=== PATIENT | female | born 1955 | race Caucasian/White ===

== ENCOUNTER 2019-01-09 17:35 | Inpatient (IN) | payer BC ==
[2019-01-09] MEDS ORDERED: Ondansetron ODT 4 MG TAB PO PRN (19:05)
[2019-01-09] MEDS ORDERED: Acetaminophen 325 MG TAB PO PRN (19:05)
[2019-01-09] MEDS ORDERED: Dextrose 5% in Water 1,000 ML IV PRN (19:17)
[2019-01-09] MEDS ORDERED: Dextrose 50% Abboject 50 ML SYRINGE SLOW IVP PRN (19:17)
[2019-01-09] MEDS: CeleCOXIB 100 MG CAP PO SCH (20:16)
[2019-01-09] MEDS: traMADol HCl 50 MG TAB PO PRN (20:16)
[2019-01-09] MEDS: Acetaminophen 500 MG TAB PO SCH (20:18)
--- NOTE | 2019-01-10 02:41 | HP ---
CHIEF COMPLAINT: Leg fractures. HISTORY OF PRESENT ILLNESS: The patient is a 63-year-old female with a past medical history of diabetes, hypertension, arthritis, who suffered a mechanical fall on 01/01/2019 and subsequent right proximal femur fracture. The patient underwent ORIF of the right femur on 01/02/2019 and has been recovering from that surgery at [facility]. The patient has been transferred to [place] for further rehabilitation. The patient is toe-touch weightbearing on the right lower extremity. She states that her pain has been well controlled on the regimen that she was at in [place]. She states she is stable on chronic medical problems and chronic medications. PAST MEDICAL HISTORY: 1. Diabetes. 2. Hypertension. 3. Arthritis. PAST SURGICAL HISTORY: 1. Back surgery. 2. Sinus surgery. 3. Cervical disk surgery. 4. ORIF of the right femur. 5. Appendectomy. ALLERGIES: 1. PENICILLIN. 2. AZITHROMYCIN. 3. LEVOFLOXACIN. 4. TETRACYCLINE. 5. SULFA. FAMILY HISTORY: 1. Dad, colon cancer and GA. 2. Mom, CHF and COPD. SOCIAL HISTORY: The patient states that she was a smoker, but has not had a cigarette since her hospital admission last week and wants to quit. The patient states has no any alcohol use and denies other drug use. REVIEW OF SYSTEMS: GENERAL: Negative for fever, chills, or night sweats. EYES: Negative for vision changes or eye pain. HEENT: Negative for sore throat, rhinorrhea, nasal congestion. CARDIOVASCULAR: Negative for chest pain, palpitation, orthopnea, and PND. RESPIRATORY: Negative for cough, shortness of breath and wheezing. GI: Negative for nausea, vomiting, diarrhea and abdominal pain. : Negative for dysuria or polyuria. MUSCULOSKELETAL: Positive for right lower extremity pain that is controlled with tramadol and Celebrex. Also positive for mild swelling near the operation site. SKIN: Negative for rashes or lesions. PSYCHIATRIC: Negative for acute anxiety or depression. NEUROLOGIC: Negative for syncope or seizure. PHYSICAL EXAMINATION: VITAL SIGNS: Temp 98.3, pulse 77, respiration rate 16, O2 saturation 96% on room air, blood pressure 124/56. GENERAL: The patient was awake, alert, oriented, and in no acute distress. EYES: Pupils are equal, round, reactive to light and accommodation. Extraocular muscles intact. HEENT: Oropharynx and nasopharynx are without erythema or exudate. NECK: Supple without lymphadenopathy, thyromegaly or bruits. CARDIOVASCULAR: Regular rate and rhythm without murmurs, gallops, or rubs. LUNGS: Clear to auscultation bilaterally without wheezing or rhonchi. ABDOMEN: Soft, nontender, nondistended. Bowel sounds present. EXTREMITIES: There is no clubbing or cyanosis. MUSCULOSKELETAL: The patient has a hinged knee brace on the right lower extremity. Otherwise, she has full range of motion of all extremities at this point, but the right lower extremity is difficult to assess. NEUROLOGIC: Cranial nerves 2 through 12 are grossly intact. Deep tendon reflexes 2/4. Sensation is within normal limits. SKIN: Negative for rashes, lesions, or jaundice. PSYCHIATRIC: The patient displays appropriate mood and affect throughout the exam. ASSESSMENT AND PLAN: 1. Right proximal femur fracture status post open reduction internal fixation: We will continue tramadol and Celebrex for pain control. The patient is toe-touch weightbearing. OT and PT will be consulted. 2. Diabetes: Continue metformin. Check A1c in the morning. The patient will have Accu-Cheks twice daily. 3. Hypertension: Continue home medication. 4. Arthritis: Medications as listed above. Job ID: [id number] [facility]
[2019-01-10 05:17] LABS: #Basophils 0.2 thou/uL (0.0-0.2); #Eosinphils 0.4 thou/uL (0.0-0.7); #Lymphocytes 2.2 thou/uL (1.20-3.40); #Monocytes 1.3 thou/uL (0.11-0.59); #Neutrophils 8.3 thou/uL (1.40-6.50); %Basophils 1.4 % (0.0-1.0); %Eosinophils 3.2 % (0.0-10.0); %Lymphocytes 17.9 % (21.0-51.0); %Monocytes 10.8 % (0.0-10.0); %Neutrophils 66.7 % (42.0-75.0); Hemoglobin 11.1 g/dL (12.0-16.0); Mean Corpuscular HGB CONC 31.7 g/dL (32.0-36.0); Mean Corpuscular Hemoglobin 29.2 pg (27.0-31.0); Mean Corpuscular Volume 92.1 fL (78.0-98.0); Mean Platelet Volume 8.1 fL (7.4-10.4); Platelet Count 366 thou/uL (130-400); RBC Distribution Width 12.5 % (11.5-14.5); Red Blood Cell (RBC) Count 3.79 mill/uL (4.20-5.40); White Blood Cell (WBC) Count 12.4 thou/uL (4.8-10.8)
[2019-01-10 05:35] LABS: ALT (SGPT) 16 U/L (8-55); AST (SGOT) 13 U/L (5-34); Albumin 3.3 g/dL (3.4-4.8); Alkaline Phosphatase 76 U/L (40-150); Anion Gap 12 mmol/L (10-20); BUN (Urea Nitrogen) 21 mg/dL (9.8-20.1); Bilirubin, Total 0.5 mg/dL (0.2-1.2); Calc. Creatinine Clearance 169 mL/min (70-130); Calcium 9.7 mg/dL (7.8-10.44); Carbon Dioxide 29 mmol/L (23-31); Chloride 103 mmol/L (98-107); Estimated GFR-MDRD Greater than 90; Globulin 2.9 g/dL (2.4-3.5); Glucose 129 mg/dL (80-115); Potassium 4.4 mmol/L (3.5-5.1); Protein, Total 6.2 g/dL (6.0-8.3); Sodium 140 mmol/L (136-145)
[2019-01-10] MEDS: Acetaminophen 500 MG TAB PO SCH ×3 (05:54→18:03)
[2019-01-10] MEDS: Losartan 25 MG TAB PO SCH (09:03)
[2019-01-10] MEDS: Bupropion 150 MG XL TAB PO SCH (09:03)
[2019-01-10] MEDS: metFORMIN 500 MG TAB PO SCH ×2 (09:03→18:03)
[2019-01-10] MEDS: Polyethylene Glycol 3350 17 GM Packet PO SCH (09:03)
[2019-01-10] MEDS: Enoxaparin Sodium 40 MG/0.4 ML SYRINGE SC SCH (09:03)
[2019-01-10] MEDS: CeleCOXIB 100 MG CAP PO SCH ×2 (09:03→20:30)
[2019-01-10] MEDS: Hydrochlorothiazide 25 MG TAB PO SCH (09:03)
--- NOTE | 2019-01-10 10:59 | PRG ---
DATE OF SERVICE: 01/10/2019 SUBJECTIVE: The patient is a 63-year-old female, undergoing rehabilitation following a right distal femur fracture. Overnight the patient slept well and she has no complaints this morning. OBJECTIVE: VITAL SIGNS: Temperature 97.7, pulse 75, respiratory rate 18, O2 saturation 93% on room air, and blood pressure 140/63. GENERAL: The patient is awake, alert, and oriented, in no acute distress. CARDIOVASCULAR: Regular rate and rhythm without murmurs, gallops, or rubs. LUNGS: Clear to auscultation bilaterally without wheezing or rhonchi. EXTREMITIES: The patient's right lower extremity is in a hinged knee brace with the leg Alexandre wrap. PSYCHIATRIC: The patient displays appropriate mood and affect. DIAGNOSTIC STUDIES: LABORATORY RESULTS: 1. CBC: WBCs 12.4, hemoglobin 11.1, hematocrit 34.9, and platelets 366. 2. CMP: Sodium 140, potassium 4.4, chloride 103, bicarb 29, BUN 21, creatinine 0.63, glucose 129, calcium 9.7, total bilirubin 0.5, AST 13, ALT 16, alkaline phosphatase 76, and total protein 6.2. 3. Accu-Cheks 109 from 149, 156. ASSESSMENT AND PLAN: 1. Right distal femur fracture status post open reduction and internal fixation: The patient will begin to work with OT and PT today. 2. Hypertension: Continue home medications. Blood pressure stable. 3. Diabetes: Blood sugars well controlled. A1c is still pending this morning. 4. Arthritis: Continue Celebrex, Tylenol, and tramadol. 5. Deep vein thrombosis prophylaxis with Lovenox. Job ID: [id number]
[2019-01-10 11:14] LABS: Hemoglobin A1c 5.7 % (4.0-6.0)
[2019-01-10] MEDS: traMADol HCl 50 MG TAB PO PRN (20:30)
[2019-01-11] MEDS: Acetaminophen 500 MG TAB PO SCH ×4 (04:22→17:35)
[2019-01-11] MEDS: Losartan 25 MG TAB PO SCH (08:18)
[2019-01-11] MEDS: metFORMIN 500 MG TAB PO SCH ×2 (08:19→17:35)
[2019-01-11] MEDS: CeleCOXIB 100 MG CAP PO SCH ×2 (08:19→21:46)
[2019-01-11] MEDS: Hydrochlorothiazide 25 MG TAB PO SCH (08:19)
[2019-01-11] MEDS: Bupropion 150 MG XL TAB PO SCH (08:19)
[2019-01-11] MEDS: Enoxaparin Sodium 40 MG/0.4 ML SYRINGE SC SCH (08:19)
[2019-01-11] MEDS: Polyethylene Glycol 3350 17 GM Packet PO SCH (08:20)
--- NOTE | 2019-01-11 10:45 | PRG ---
DATE OF SERVICE: 01/11/2019 SUBJECTIVE: The patient is a 63-year-old female, undergoing rehabilitation following a distal femur fracture and subsequent ORIF. The patient's only complaint this morning is that the Lovenox injections that she received are stinging. She states that she practices transferring from wheelchair to a walker to bed yesterday with therapy. The patient states that her leg pain was controlled with current medications. OBJECTIVE: VITAL SIGNS: Temperature 97.8, pulse 86, respiration rate 16, O2 saturations 96% on room air, blood pressure 98/49. GENERAL: The patient is awake, alert, oriented, in no acute distress. CARDIOVASCULAR: Regular rate and rhythm without murmurs, gallops, or rubs. LUNGS: Clear to auscultation bilaterally without wheezing or rhonchi. ABDOMEN: Soft, nontender, nondistended with bowel sounds present. EXTREMITIES: No clubbing, cyanosis, or edema. PSYCHIATRIC: The patient displays an appropriate mood and affect. MUSCULOSKELETAL: The patient has a hinged knee brace on the right lower extremity. LABORATORY DATA: 1. Hemoglobin A1c 5.7. 2. Accu-Cheks 120, 116, 127. ASSESSMENT AND PLAN: 1. Right distal femur fracture, status post open reduction and internal fixation: The patient will continue PT and OT. Continue medications for pain control. Nursing is called for followup appointment and we are waiting on a call back from the specialist. 2. Hypertension: Blood pressure stable. Continue home medications. 3. Diabetes: A1c is controlled. Blood sugars are stable. Continue metformin. 4. Arthritis: Continue current pain medications, which are tramadol, Tylenol, and Celebrex. 5. Deep venous thrombosis prophylaxis with Lovenox. Job ID: [id number]
[2019-01-12] MEDS: Acetaminophen 500 MG TAB PO SCH ×5 (04:57→23:29)
[2019-01-12] MEDS: Bupropion 150 MG XL TAB PO SCH (08:08)
[2019-01-12] MEDS: Hydrochlorothiazide 25 MG TAB PO SCH (08:08)
[2019-01-12] MEDS: metFORMIN 500 MG TAB PO SCH ×2 (08:08→17:20)
[2019-01-12] MEDS: Losartan 25 MG TAB PO SCH (08:08)
[2019-01-12] MEDS: Polyethylene Glycol 3350 17 GM Packet PO SCH (08:09)
[2019-01-12] MEDS: Enoxaparin Sodium 40 MG/0.4 ML SYRINGE SC SCH (08:09)
[2019-01-12] MEDS: CeleCOXIB 100 MG CAP PO SCH ×2 (08:09→21:21)
[2019-01-12] MEDS: traMADol HCl 50 MG TAB PO PRN (21:21)
[2019-01-13] MEDS: Acetaminophen 500 MG TAB PO SCH ×3 (05:12→17:27)
[2019-01-13] MEDS: Losartan 25 MG TAB PO SCH (07:35)
[2019-01-13] MEDS: metFORMIN 500 MG TAB PO SCH ×2 (07:35→17:27)
[2019-01-13] MEDS: Hydrochlorothiazide 25 MG TAB PO SCH (07:35)
[2019-01-13] MEDS: CeleCOXIB 100 MG CAP PO SCH ×2 (09:02→20:42)
[2019-01-13] MEDS: Enoxaparin Sodium 40 MG/0.4 ML SYRINGE SC SCH (09:02)
[2019-01-13] MEDS: Bupropion 150 MG XL TAB PO SCH (09:02)
[2019-01-13] MEDS: Polyethylene Glycol 3350 17 GM Packet PO SCH (09:03)
--- NOTE | 2019-01-13 10:07 | PRG ---
DATE OF SERVICE: 01/13/2019 SUBJECTIVE: The patient is a 63-year-old female, undergoing rehabilitation following a right distal femur fracture. The patient states that she occasionally gets twinges of pain in that leg, but it is tolerable. The patient was seen this morning working with Physical Therapy outside the facility practicing moving her wheelchair up the wheelchair ramp. OBJECTIVE: VITAL SIGNS: Temp 96.7, pulse 78, respiration rate 18, O2 saturation 95% on room air, and blood pressure 133/64. GENERAL: The patient is awake, alert, oriented, in no acute distress. CARDIOVASCULAR: Regular rate and rhythm without murmurs, gallops, or rubs. LUNGS: Clear to auscultation bilaterally without wheezing or rhonchi. ABDOMEN: Soft, nontender, and nondistended. EXTREMITIES: There is no clubbing, cyanosis, or edema. MUSCULOSKELETAL: The patient has a hinged knee brace on the right lower extremity. PSYCHIATRIC: The patient displays appropriate mood and affect. LABORATORY DATA: Accu-Cheks 128, 121. ASSESSMENT AND PLAN: 1. Right distal femur fracture, status post open reduction and internal fixation: The patient will continue current medications for pain management. She will continue PT and OT. 2. Diabetes: Blood sugars are well controlled. 3. Hypertension: Blood pressure is controlled. Continue home medications. 4. Arthritis: Continue Celebrex, tramadol, and Tylenol. 5. Deep vein thrombosis prophylaxis with Lovenox. Job ID: [id number]
[2019-01-14] MEDS: Acetaminophen 500 MG TAB PO SCH ×4 (05:59→17:12)
[2019-01-14] MEDS: Enoxaparin Sodium 40 MG/0.4 ML SYRINGE SC SCH (08:14)
[2019-01-14] MEDS: metFORMIN 500 MG TAB PO SCH ×2 (08:15→17:13)
[2019-01-14] MEDS: Hydrochlorothiazide 25 MG TAB PO SCH (08:15)
[2019-01-14] MEDS: CeleCOXIB 100 MG CAP PO SCH ×2 (08:15→20:51)
[2019-01-14] MEDS: Polyethylene Glycol 3350 17 GM Packet PO SCH (08:15)
[2019-01-14] MEDS: Bupropion 150 MG XL TAB PO SCH (08:15)
[2019-01-14] MEDS: Losartan 25 MG TAB PO SCH (08:15)
--- NOTE | 2019-01-14 12:26 | PRG ---
DATE OF SERVICE: 01/14/2019 SUBJECTIVE: The patient is a 63-year-old female, undergoing rehabilitation following a right distal femur fracture status post ORIF. The patient's bandage has been removed from her leg. She states her pain is controlled. Nursing reports that she is having difficulty remembering to stages of toe-touch weightbearing with transfers. OBJECTIVE: VITAL SIGNS: Temperature 96.0, pulse 85, respiratory rate 18, O2 saturation 93% on room air, and blood pressure 128/57. GENERAL: The patient is awake, alert, and oriented, in no acute distress. CARDIOVASCULAR: Regular rate and rhythm without murmurs, gallops, or rubs. LUNGS: Clear to auscultation bilaterally without wheezing or rhonchi. ABDOMEN: Soft, nontender, and nondistended. Bowel sounds present. EXTREMITIES: There is no clubbing or cyanosis, and there is mild stable edema around the right knee. SKIN: The patient's incision is clean, dry, and intact and js are in place with no signs of erythema. PSYCHIATRIC: The patient displays an appropriate mood and affect. LABORATORY DATA: Accu-Cheks: 143, 122. ASSESSMENT AND PLAN: 1. Right distal femur fracture status post open reduction and internal fixation: The patient will continue PT and OT. She is working on transfers and they are continuing to encourage her on a toe-touch weightbearing status. She has a followup appointment with Dr. Davidson in two days. 2. Diabetes: The patient's blood sugars were well controlled. Continue diabetic diet. 3. Hypertension: Blood pressures are well controlled. 4. Osteoarthritis: Continue current medications for pain control. 5. Deep venous thrombosis prophylaxis. Continue Lovenox. Job ID: [id number]
[2019-01-15] MEDS: Acetaminophen 500 MG TAB PO SCH ×4 (03:01→17:21)
[2019-01-15] MEDS: Hydrochlorothiazide 25 MG TAB PO SCH (07:43)
[2019-01-15] MEDS: metFORMIN 500 MG TAB PO SCH ×2 (07:43→17:21)
[2019-01-15] MEDS: Losartan 25 MG TAB PO SCH (07:43)
[2019-01-15] MEDS: Bupropion 150 MG XL TAB PO SCH (08:24)
[2019-01-15] MEDS: Enoxaparin Sodium 40 MG/0.4 ML SYRINGE SC SCH (08:24)
[2019-01-15] MEDS: CeleCOXIB 100 MG CAP PO SCH ×2 (08:24→20:34)
[2019-01-15] MEDS: Polyethylene Glycol 3350 17 GM Packet PO SCH (08:25)
--- NOTE | 2019-01-15 17:49 | PRG ---
DATE OF SERVICE: 01/15/2019 SUBJECTIVE: The patient is a 63-year-old female, undergoing rehabilitation following a right distal femur fracture status post ORIF. The patient will have her follow up with Ortho tomorrow. She is toe-touch weightbearing and states that she was able to take five steps with therapy using her good leg today. She notes some mild swelling in the right knee, however, that is improved after some ice packs. OBJECTIVE: VITAL SIGNS: Temperature 98.1, pulse 84, respiration rate 16, O2 saturation 94% on room air, and blood pressure 135/60. GENERAL: The patient is awake, alert, and oriented, in no acute distress. CARDIOVASCULAR: Regular rate and rhythm without murmurs, gallops, or rubs. LUNGS: Clear to auscultation bilaterally without wheezing or rhonchi. ABDOMEN: Soft, nontender, nondistended with bowel sounds present. EXTREMITIES: There is no clubbing, cyanosis, or edema. SKIN: The patient's incision is clean, dry, and intact with js in place on the right lower extremity. PSYCHIATRIC: The patient displays appropriate mood and affect. LABORATORY DATA: Accu-Cheks 114, 197, 132. ASSESSMENT AND PLAN: 1. Right distal femur fracture, status post open reduction and internal fixation: The patient will see Ortho tomorrow. Continue PT and OT with toe-touch weightbearing until additional orders were given by Ortho. 2. Diabetes: Blood sugar was a little bit elevated this morning, but the rest are within normal range for diabetic. Continue to encourage compliance with diet. 3. Hypertension: Blood pressure has been stable. 4. Osteoarthritis: Continue pain medication as needed. 5. Deep venous thrombosis prophylaxis with Lovenox. Job ID: [id number]
[2019-01-16] MEDS: Acetaminophen 500 MG TAB PO SCH ×5 (05:16→23:45)
[2019-01-16 05:41] LABS: #Basophils 0.2 thou/uL (0.0-0.2); #Eosinphils 0.3 thou/uL (0.0-0.7); #Lymphocytes 2.6 thou/uL (1.20-3.40); #Monocytes 1.2 thou/uL (0.11-0.59); #Neutrophils 9.2 thou/uL (1.40-6.50); %Basophils 1.3 % (0.0-1.0); %Eosinophils 2.4 % (0.0-10.0); %Lymphocytes 19.2 % (21.0-51.0); %Monocytes 8.9 % (0.0-10.0); %Neutrophils 68.2 % (42.0-75.0); Hemoglobin 11.5 g/dL (12.0-16.0); Mean Corpuscular HGB CONC 31.7 g/dL (32.0-36.0); Mean Corpuscular Volume 91.5 fL (78.0-98.0); Mean Platelet Volume 7.4 fL (7.4-10.4); Platelet Count 423 thou/uL (130-400); RBC Distribution Width 12.7 % (11.5-14.5); Red Blood Cell (RBC) Count 3.97 mill/uL (4.20-5.40); White Blood Cell (WBC) Count 13.4 thou/uL (4.8-10.8)
[2019-01-16 05:52] LABS: Anion Gap 13 mmol/L (10-20); BUN (Urea Nitrogen) 26 mg/dL (9.8-20.1); Calc. Creatinine Clearance 154 mL/min (70-130); Carbon Dioxide 30 mmol/L (23-31); Chloride 101 mmol/L (98-107); Estimated GFR-MDRD 86; Glucose 116 mg/dL (80-115); Potassium 3.8 mmol/L (3.5-5.1); Sodium 140 mmol/L (136-145)
[2019-01-16] MEDS: Hydrochlorothiazide 25 MG TAB PO SCH (07:26)
[2019-01-16] MEDS: Losartan 25 MG TAB PO SCH (07:26)
[2019-01-16] MEDS: metFORMIN 500 MG TAB PO SCH ×2 (07:26→17:30)
[2019-01-16] MEDS: Bupropion 150 MG XL TAB PO SCH (08:19)
[2019-01-16] MEDS: Enoxaparin Sodium 40 MG/0.4 ML SYRINGE SC SCH (08:19)
[2019-01-16] MEDS: Polyethylene Glycol 3350 17 GM Packet PO SCH (08:19)
[2019-01-16] MEDS: CeleCOXIB 100 MG CAP PO SCH ×2 (08:19→21:03)
--- NOTE | 2019-01-16 23:07 | PRG ---
DATE OF SERVICE: 01/16/2019 SUBJECTIVE: The patient is a 63-year-old female, undergoing rehabilitation following a right distal femur fracture status post ORIF. The patient has been to see her orthopedic surgeon today, and her js have been removed. The patient is to remain toe-touch weightbearing for the next 4 weeks. I have recommended that she start calcium and vitamin D. OBJECTIVE: VITAL SIGNS: Temp 97.6, pulse 81, respiration rate 20, O2 saturation 95% on room air, and blood pressure 116/56. GENERAL: The patient is awake, alert, oriented, and in no acute distress. CARDIOVASCULAR: Regular rate and rhythm without murmurs, gallops, or rubs. LUNGS: Clear to auscultation bilaterally without wheezing or rhonchi. ABDOMEN: Soft, nontender, nondistended. Bowel sounds present. EXTREMITIES: There is no clubbing, cyanosis, or edema. SKIN: The patient has Steri-Strips in place following the incision on her right lower extremity. There are no signs of erythema. PSYCHIATRIC: The patient displays appropriate mood and affect. LABORATORY DATA: 1. CBC: WBCs 13.4, hemoglobin 11.5, hematocrit 36.3, platelet count 423. 2. BMP: Sodium 140, potassium 3.8, chloride 101, bicarb 30, BUN 26, creatinine 0.69, glucose 116, calcium 10. 3. Accu-Chek 104. ASSESSMENT AND PLAN: 1. Right distal femur fracture status post ORIF: We will continue PT and OT. The patient will remain toe-touch weightbearing for the next 4 weeks and then will have a followup with Ortho again. We will continue pain management. 2. Hypertension: Blood pressure is well controlled. 3. Diabetes: Blood sugar is also controlled. 4. Leukocytosis: The patient has no signs of infection at this time. She is afebrile. Her incision looks clean. We will monitor for additional signs of infection. 5. Osteoarthritis: Pain control as mentioned above. 6. Osteopenia: The patient will be started on calcium and vitamin D. 7. DVT prophylaxis with Lovenox. Job ID: [id number]
[2019-01-17] MEDS: Acetaminophen 500 MG TAB PO SCH ×4 (05:29→23:57)
[2019-01-17] MEDS: Bupropion 150 MG XL TAB PO SCH (07:46)
[2019-01-17] MEDS: metFORMIN 500 MG TAB PO SCH ×2 (07:46→19:21)
[2019-01-17] MEDS: Calcium Carbonate + Vit D 1 TAB PO SCH (07:46)
[2019-01-17] MEDS: Losartan 25 MG TAB PO SCH (07:46)
[2019-01-17] MEDS: CeleCOXIB 100 MG CAP PO SCH ×2 (07:46→20:32)
[2019-01-17] MEDS: Enoxaparin Sodium 40 MG/0.4 ML SYRINGE SC SCH (07:46)
[2019-01-17] MEDS: Hydrochlorothiazide 25 MG TAB PO SCH (07:46)
[2019-01-17] MEDS: Polyethylene Glycol 3350 17 GM Packet PO SCH (07:51)
--- NOTE | 2019-01-17 13:00 | PRG ---
DATE OF SERVICE: 01/17/2019 SUBJECTIVE: The patient is at [facility] for rehabilitation following a right distal femur fracture. The patient had a good night last night and states that her pain is well controlled this morning. She is looking forward to beginning therapy. OBJECTIVE: VITAL SIGNS: Temperature 98.1, pulse 72, respiration rate 20, O2 saturation 94% on room air, blood pressure 122/76. GENERAL: The patient is awake, alert, oriented, in no acute distress. CARDIOVASCULAR: Regular rate and rhythm without murmurs, gallops, or rubs. LUNGS: Clear to auscultation bilaterally without wheezing or rhonchi. ABDOMEN: Soft, nontender, nondistended. Bowel sounds are present. EXTREMITIES: There is no clubbing, cyanosis, or edema. SKIN: Steri-Strips are in place on the patient's right lower extremity incision. There is no erythema, warmth, or tenderness. ASSESSMENT AND PLAN: 1. Right distal femur fracture, status post open reduction and internal fixation: Continue therapy and pain control. 2. Osteopenia: We are starting calcium and vitamin D. She will get her first dose today. 3. Hypertension, well controlled. 4. Diabetes, well controlled. 5. DVT prophylaxis: Lovenox. Job ID: [id number]
[2019-01-18] MEDS: Acetaminophen 500 MG TAB PO SCH ×3 (05:07→17:29)
[2019-01-18] MEDS: metFORMIN 500 MG TAB PO SCH ×2 (07:57→17:29)
[2019-01-18] MEDS: Calcium Carbonate + Vit D 1 TAB PO SCH (07:57)
[2019-01-18] MEDS: CeleCOXIB 100 MG CAP PO SCH ×2 (07:57→20:04)
[2019-01-18] MEDS: Losartan 25 MG TAB PO SCH (07:57)
[2019-01-18] MEDS: Enoxaparin Sodium 40 MG/0.4 ML SYRINGE SC SCH (07:58)
[2019-01-18] MEDS: Hydrochlorothiazide 25 MG TAB PO SCH (07:58)
[2019-01-18] MEDS: Bupropion 150 MG XL TAB PO SCH (07:58)
[2019-01-18] MEDS: Polyethylene Glycol 3350 17 GM Packet PO SCH (07:58)
[2019-01-19] MEDS: Acetaminophen 500 MG TAB PO SCH ×5 (05:20→23:22)
[2019-01-19] MEDS: Enoxaparin Sodium 40 MG/0.4 ML SYRINGE SC SCH (08:11)
[2019-01-19] MEDS: CeleCOXIB 100 MG CAP PO SCH ×2 (08:12→20:23)
[2019-01-19] MEDS: Calcium Carbonate + Vit D 1 TAB PO SCH (08:12)
[2019-01-19] MEDS: Losartan 25 MG TAB PO SCH (08:12)
[2019-01-19] MEDS: Bupropion 150 MG XL TAB PO SCH (08:12)
[2019-01-19] MEDS: metFORMIN 500 MG TAB PO SCH ×2 (08:12→17:21)
[2019-01-19] MEDS: Hydrochlorothiazide 25 MG TAB PO SCH (08:12)
[2019-01-19] MEDS: Polyethylene Glycol 3350 17 GM Packet PO SCH (08:20)
[2019-01-20] MEDS: Acetaminophen 500 MG TAB PO SCH ×3 (05:29→17:47)
[2019-01-20] MEDS: Losartan 25 MG TAB PO SCH (07:38)
[2019-01-20] MEDS: Hydrochlorothiazide 25 MG TAB PO SCH (07:38)
[2019-01-20] MEDS: Calcium Carbonate + Vit D 1 TAB PO SCH (07:38)
[2019-01-20] MEDS: metFORMIN 500 MG TAB PO SCH ×2 (07:38→17:47)
[2019-01-20] MEDS: Bupropion 150 MG XL TAB PO SCH (08:48)
[2019-01-20] MEDS: CeleCOXIB 100 MG CAP PO SCH ×2 (08:48→20:37)
[2019-01-20] MEDS: Enoxaparin Sodium 40 MG/0.4 ML SYRINGE SC SCH (08:49)
[2019-01-20] MEDS: Polyethylene Glycol 3350 17 GM Packet PO SCH (08:49)
--- NOTE | 2019-01-20 09:25 | PRG ---
DATE OF SERVICE: 01/20/2019 TIME: 0800 hours. SUBJECTIVE: Ms. Mitchell is lying comfortably in hospital bed. She is receiving breakfast at the time of exam. The patient reports she is doing well. No events overnight. States pain is controlled. Able to bear minimal weight on right lower extremity. Continues to work with Physical Therapy. No complications. Reports pain after physical therapy, 1 to 2/10. Denies any trouble with voiding or bowel movements. Does state she is ready to go home, but understands continued need for assistance. Sutures were removed on . The patient reports no drainage discharge or redness from incision site, and also denies pain. OBJECTIVE: VITAL SIGNS: Temperature 96.0, pulse 69 and regular, respiratory rate 16, O2 saturation 95% on room air, blood pressure 121/63, max temperature 96.8. Intake total 1440 mL. Weight 113.942 kilograms. GENERAL: The patient is awake, alert, and oriented to person, place, time, and event, in no acute distress, lying comfortably in hospital bed. HEENT: Atraumatic and normocephalic. Extraocular muscles are intact. Conjunctivae are clear. Moist mucous membranes. No oral lesions. Grossly normal hearing. CARDIOVASCULAR: Regular rate and rhythm. No murmurs, gallops, or rubs. LUNGS: Clear to auscultation bilaterally. No wheezes, rhonchi, or crackles. ABDOMEN: Soft, nontender, nondistended. No guarding. No rebound. Bowel sounds present. EXTREMITIES: No clubbing, cyanosis, or edema. Brace appropriately attached to right lower extremity. Incision healing well. No erythema or drainage. No tenderness. No heat. SKIN: Steri-Strips in place on the patient's right lower extremity. PSYCH: Affect appropriate. Insight good. LABS: POC Glucose: 97, 130, 98 ASSESSMENT AND PLAN: 1. Right distal femur fracture status post open reduction and internal fixation. on 01/02/2019 after fall occurring on 01/01/2019. The patient is currently in inpatient rehab, continues to do well with physical therapy. Pain is controlled. Will follow up in 2 week with Orthopedics. Incision is healing well, no concerns. 2. Osteopenia with fragility fracture. Continue calcium-vitamin D. We will likely need bisphosphonates after acute healing stage due to concerning fracture. 3. Hypertension, well controlled. Continue current medications. 4. Diabetes. Accu-Chek's have been 97, 130, 98. We will continue current medications. No need to adjust at this time. Continue carb-controlled diet. 5. Deep vein thrombosis prophylaxis. Continue Lovenox ppx. Will consider switching to oral. Job ID: [id number] [facility]
[2019-01-21] MEDS: Acetaminophen 500 MG TAB PO SCH ×5 (00:34→23:29)
[2019-01-21] MEDS: Losartan 25 MG TAB PO SCH (08:14)
[2019-01-21] MEDS: Hydrochlorothiazide 25 MG TAB PO SCH (08:14)
[2019-01-21] MEDS: Enoxaparin Sodium 40 MG/0.4 ML SYRINGE SC SCH (08:15)
[2019-01-21] MEDS: Bupropion 150 MG XL TAB PO SCH (08:15)
[2019-01-21] MEDS: metFORMIN 500 MG TAB PO SCH ×2 (08:15→17:09)
[2019-01-21] MEDS: Calcium Carbonate + Vit D 1 TAB PO SCH (08:15)
[2019-01-21] MEDS: CeleCOXIB 100 MG CAP PO SCH ×2 (08:15→20:42)
[2019-01-21] MEDS: Polyethylene Glycol 3350 17 GM Packet PO SCH (08:16)
--- NOTE | 2019-01-21 09:50 | PRG ---
DATE OF SERVICE: 01/21/2019 TIME: 07:41. SUBJECTIVE: Mrs. Mitchell is lying comfortably in her hospital bed. She denies any acute events overnight. Reports pain is well controlled. No complications with bladder or bowel function. She did well with physical therapy yesterday. Reportedly was able to hop 36 feet. Reports incision is healing well. No complications. OBJECTIVE: VITAL SIGNS: Temperature 97.8, pulse 74 and regular, respiratory rate 16, O2 saturation 95% on room air, blood pressure 137/61. Intake 360 mL. GENERAL: The patient is awake, alert, and oriented to person, place, time, and event, in no acute distress noted. She is lying comfortably in her hospital bed. HEENT: Atraumatic and normocephalic. Extraocular muscles are intact. Conjunctivae are clear. Moist mucous membranes. No oral lesions. Grossly normal hearing. CARDIOVASCULAR: Regular rate and rhythm. No murmurs. LUNGS: Clear to auscultation bilaterally. No wheezes, crackles, or rhonchi. ABDOMEN: Soft, nontender, nondistended. Bowel sounds present. EXTREMITIES: No clubbing, cyanosis, or edema. Leg brace attached to right lower extremity. SKIN: Steri-Strips again in place. Incision healing well. No erythema, drainage, edema, or heat. PSYCH: Appropriate mood and affect. LABS: Accu-chek 89, 172, 93. ASSESSMENT AND PLAN: 1. Right distal femur fracture, status post open reduction and internal fixation of right intra-articular distal femur fracture on 01/02/2019. The patient is currently in inpatient rehab, continues to do well. We will continue physical therapy. Still not able to weight bear. We will follow up with Orthopedics in 2 weeks. Weightbearing based on Orthopedics recommendations. Incision is healing well, no concerns or infection. 2. Osteopenia with fragility fracture. We will continue vitamin D and calcium. The patient will likely need bisphosphonates after acute healing stage. 3. Hypertension, well controlled. Continue current medications. These include HCTZ and losartan. 4. Diabetes. Controlled. We will discontinue Accu-Chek's. Continue metformin. No side effects at this time. Continue carb-controlled diet. 5. Long-term tobacco use, status post cessation. The patient currently on Wellbutrin. No longer having cravings for tobacco or nicotine products. No use over the last 3 weeks. We will continue current medications. 6. Prophylaxis. The patient is currently on Lovenox for DVT prophylaxis with p.r.n. H2 reed for GERD or reflux. Job ID: [id number] [facility]
--- NOTE | 2019-01-21 16:22 | PRG ---
DATE OF SERVICE: 01/19/2019 SUBJECTIVE: The patient is a 63-year-old female undergoing rehabilitation following a right distal femur fracture. The patient states that her pain is well controlled. She has noted that the swelling in her right lower extremity is also improved. OBJECTIVE: VITAL SIGNS: Temperature 96.8, pulse 77, respiration rate 18, O2 saturation 96% on room air, and blood pressure 123/67. GENERAL: The patient is awake, alert, and oriented, in no acute distress. CARDIOVASCULAR: Regular rate and rhythm without murmurs, gallops, or rubs. LUNGS: Clear to auscultation bilaterally without wheezing or rhonchi. ABDOMEN: Soft, nontender, and nondistended. Bowel sounds present. EXTREMITIES: No clubbing or cyanosis. SKIN: Steri-Strips are in place on the right lower extremity along the incision line. PSYCHIATRIC: The patient displays an appropriate mood and affect. ASSESSMENT AND PLAN: 1. Right distal femur fracture: The patient is doing well. She will continue toe-touch weightbearing. Continue PT and OT that we will resume on Sunday. 2. Hypertension: Blood pressure is well controlled. 3. Diabetes: The patient is controlled with oral medications and she has had no episodes of hypoglycemia. 4. Osteopenia: Continue calcium and vitamin D. 5. Dr. Marisol Robert will be covering for me starting this afternoon, 01/19 through 01/26. Job ID: [id number]
[2019-01-22] MEDS: Acetaminophen 500 MG TAB PO SCH ×3 (05:29→17:42)
[2019-01-22] MEDS: Calcium Carbonate + Vit D 1 TAB PO SCH (08:32)
[2019-01-22] MEDS: Enoxaparin Sodium 40 MG/0.4 ML SYRINGE SC SCH (08:32)
[2019-01-22] MEDS: CeleCOXIB 100 MG CAP PO SCH ×2 (08:32→20:45)
[2019-01-22] MEDS: Bupropion 150 MG XL TAB PO SCH (08:32)
[2019-01-22] MEDS: Hydrochlorothiazide 25 MG TAB PO SCH (08:32)
[2019-01-22] MEDS: metFORMIN 500 MG TAB PO SCH ×2 (08:32→17:42)
[2019-01-22] MEDS: Losartan 25 MG TAB PO SCH (08:32)
[2019-01-22] MEDS: Polyethylene Glycol 3350 17 GM Packet PO SCH (09:02)
--- NOTE | 2019-01-22 16:05 | PRG ---
DATE OF SERVICE: 01/22/2019 TIME: 1433 hours. SUBJECTIVE: Ms. Mitchell is sitting comfortably in bedside chair. Brace in place. Denies any acute events overnight. Reports physical therapy went well today. No difficulties with sleep overnight. OBJECTIVE: VITAL SIGNS: Temperature 97.8, pulse 74 and regular, respiratory rate 16, O2 saturation 94% on room air, blood pressure 117/55. Intake 1200 mL. GENERAL: The patient is awake, alert, and oriented to person, place, time, and event, sitting comfortably in bedside chair, in no acute distress at this time. HEENT: Atraumatic and normocephalic. Extraocular muscles are intact. Conjunctivae are clear. Moist mucous membranes. No oral lesions. Grossly normal hearing. CARDIOVASCULAR: Regular rate and rhythm. No murmurs. LUNGS: Clear to auscultation bilaterally. No wheezing or crackles. ABDOMEN: Soft, nontender, nondistended. Bowel sounds present. EXTREMITIES: No clubbing. No cyanosis. No edema. Leg brace attached to right lower extremity. SKIN: Steri-Strips in place. Incision is healing well. No erythema, drainage, edema, or heat. Nontender to palpation. PSYCHIATRIC: Appropriate mood and affect. LABORATORY DATA: Poaxc-sp-uadi glucose 93, 117, 92. ASSESSMENT AND PLAN: 1. Right distal femur fracture, status post open reduction and internal fixation of right intra-articular distal femur fracture on 01/02/2019. The patient will continue inpatient rehab until able to ambulate with minimal assistance. We will continue physical therapy daily. Has orthopedic followup in 2 weeks in order to determine if able to increase weightbearing exercises. Incision is healing well. No concerns of infection at this time. Pain is controlled. 2. Osteopenia with fragility fracture. Continue vitamin D and calcium. We will likely need bisphosphonate after acute healing stage. 3. Hypertension, well controlled. Continue current medications. No adjustments necessary. 4. Diabetes, well controlled. Continue metformin b.i.d. Accu-Cheks have been discontinued. Continue carb-control diet. 5. Long-term tobacco use, status post cessation. Continue current medications. Cravings, resolved. 6. Prophylaxis. The patient is now past 14 day lay after orthopedic surgery. We will transition Lovenox to apixaban for deep venous thrombosis prophylaxis. We will continue until postoperative day 35 due to risk for venous thromboembolism. H2 reed for gastroesophageal reflux disease/reflux available upon request. Job ID: [id number] MTDD
[2019-01-23] MEDS: Acetaminophen 500 MG TAB PO SCH ×5 (00:39→23:42)
[2019-01-23] MEDS: Losartan 25 MG TAB PO SCH (08:50)
[2019-01-23] MEDS: Bupropion 150 MG XL TAB PO SCH (08:50)
[2019-01-23] MEDS: metFORMIN 500 MG TAB PO SCH ×2 (08:50→17:27)
[2019-01-23] MEDS: Calcium Carbonate + Vit D 1 TAB PO SCH (08:50)
[2019-01-23] MEDS: Hydrochlorothiazide 25 MG TAB PO SCH (08:50)
[2019-01-23] MEDS: Polyethylene Glycol 3350 17 GM Packet PO SCH (08:50)
[2019-01-23] MEDS: CeleCOXIB 100 MG CAP PO SCH ×2 (08:50→21:43)
[2019-01-23] MEDS: Apixaban 2.5 MG TAB PO SCH ×2 (08:50→21:43)
--- NOTE | 2019-01-23 09:29 | PRG ---
DATE OF SERVICE: 01/23/2019 TIME: 0748 hours. SUBJECTIVE: Ms. Mitchell is sitting comfortably in her bed having breakfast at the moment. Denies any overnight events. Reports she slept throughout the night without any complications. Reports pain, remains controlled. OBJECTIVE: VITAL SIGNS: Temperature 97.4, pulse 83 and regular, respiratory rate 20, O2 saturation 97% on room air, blood pressure 124/56. Intake 958 mL. GENERAL: The patient is awake, alert, and oriented to person, place, time, and event, no acute distress noted. HEENT: Atraumatic and normocephalic. Extraocular muscles are intact. Conjunctivae are clear. Moist mucous membranes. Grossly normal hearing. CARDIOVASCULAR: Regular rate and rhythm. No murmurs. LUNGS: Clear to auscultation bilaterally. No wheezes or crackles. ABDOMEN: Soft, nontender, nondistended. Bowel sounds present. EXTREMITIES: No clubbing, cyanosis, or edema. Right leg brace in place. SKIN: Incision is healing well. No erythema, drainage, edema, or heat. Nontender to palpation. PSYCHIATRIC: Appropriate mood and affect. LABS: No new. ASSESSMENT AND PLAN: 1. Right distal femur fracture, status post open reduction and internal fixation of right intra-articular distal femur fracture on 01/02/2019. Continue inpatient rehab. Doing well with physical therapy. We will follow with Orthopedics in 2 weeks. Incision is healing well. No concerns for complications or infection. Pain is controlled. 2. Osteopenia with fragility fracture. Continue vitamin D and calcium. We will need to add bisphosphonate. 3. Hypertension, well controlled. Continue current medications. 4. Diabetes, well controlled. Continue metformin b.i.d. and carb-consistent diet. 5. Long-term tobacco use, status post cessation. Continue Wellbutrin to help with cravings. No need for adjustments. 6. Osteoarthritis. Continue Celebrex b.i.d. 7. Prophylaxis. We will transition to apixaban today for venous thromboembolism prophylaxis. Continue at least 35 days postop. We will extend based on inpatient rehab status if past 35 days. Continue H2 reed for GI prophylaxis available upon request. [facility] ID[facility] [id number] [facility]
[2019-01-24] MEDS: Acetaminophen 500 MG TAB PO SCH ×4 (05:39→23:01)
[2019-01-24] MEDS: Hydrochlorothiazide 25 MG TAB PO SCH (08:08)
[2019-01-24] MEDS: CeleCOXIB 100 MG CAP PO SCH ×2 (08:08→21:19)
[2019-01-24] MEDS: metFORMIN 500 MG TAB PO SCH ×2 (08:08→17:18)
[2019-01-24] MEDS: Losartan 25 MG TAB PO SCH (08:09)
[2019-01-24] MEDS: Polyethylene Glycol 3350 17 GM Packet PO SCH (08:09)
[2019-01-24] MEDS: Bupropion 150 MG XL TAB PO SCH (08:09)
[2019-01-24] MEDS: Calcium Carbonate + Vit D 1 TAB PO SCH (08:09)
[2019-01-24] MEDS: Apixaban 2.5 MG TAB PO SCH ×2 (08:09→21:20)
--- NOTE | 2019-01-24 09:38 | PRG ---
DATE OF SERVICE: 01/24/2019 TIME: 08:30. SUBJECTIVE: Ms. Mitchell is sitting comfortably in her hospital bed. Nurse present in room handing out medications. Ms. Mitchell denies any acute events overnight, reports that she slept well. Pain is well controlled. No difficulty with bowel movements. Incision is healing well. Steri-Strips continue to fall off. OBJECTIVE: VITAL SIGNS: Temperature 98.5, pulse 82 and regular, respiratory rate 20, O2 saturation 96% on room air, blood pressure 115/54. Intake 1198 mL. GENERAL: The patient is awake, alert, and oriented to person, place, time, and event, no acute distress noted. HEENT: Atraumatic and normocephalic. Extraocular muscles are intact. Conjunctivae are clear. Moist mucous membranes. Grossly normal hearing. NECK: Supple. CARDIOVASCULAR: Regular rate and rhythm. No murmurs appreciated. LUNGS: Clear to auscultation bilaterally. No wheezes or crackles. ABDOMEN: Soft, nontender, nondistended. Bowel sounds present. EXTREMITIES: No clubbing, cyanosis, or edema. Right leg brace in place. SKIN: Incision is healing well. No erythema, drainage, edema, or heat. Nontender to palpation. Steri-Strips continue to fall off. PSYCHIATRIC: Appropriate mood and affect. LABS: No new. ASSESSMENT AND PLAN: 1. Status post open reduction internal fixation of right intra-articular distal femur fracture on 01/02/2019. Continue inpatient rehab. Continues to do well with physical therapy. Yesterday tolerated ambulation with 4-point walker on left lower extremity, still unable to bear weight on right. Also participated in upper arm exercises without difficulty. We will follow up with Orthopedics on 02/05/2019. Her incision is healing well. Steri-Strips continue to fall off. No concern for wound complication or infection. 2. Osteopenia with fragility fracture. We will continue vitamin D and calcium at this time and transition to bisphosphonate. 3. Hypertension, well controlled. Continue current medications. 4. Diabetes, well controlled. Continue metformin b.i.d. and carb-consistent diet. 5. Long-term tobacco use, status post cessation. We will continue Wellbutrin for now. No need for adjustments. No cravings. 6. Osteoarthritis. Continue Celebrex b.i.d. 7. Prophylaxis. The patient tolerating apixaban well. We will continue to at least day 35 postop. We will consider extending if patient remains in rehab. Continue H2 reed for GI prophylaxis available upon request. Job ID: [id number] MTDD
[2019-01-25] MEDS: Acetaminophen 500 MG TAB PO SCH ×3 (05:18→17:28)
--- NOTE | 2019-01-25 08:08 | PRG ---
DATE OF SERVICE: 01/25/2019 TIME: 0747 hours. SUBJECTIVE: Ms. Mitchell is lying comfortably in hospital bed. She reports she did well overnight, however, noted right lower extremity achy-type pain last night after extensive PT workout yesterday. Pain was relieved with 1 dose of Tylenol. No other events overnight. OBJECTIVE: VITAL SIGNS: Temperature 96.8, pulse 71 and regular, respiratory rate 18, O2 saturation 96% on room air, and blood pressure 141/65. Intake 1200 mL. GENERAL: GENERAL: The patient is awake, alert, and oriented to person, place, time, and event, no acute distress noted. HEENT: Atraumatic and normocephalic. Extraocular muscles are intact. Conjunctivae are clear. Moist mucous membranes. Grossly normal hearing. NECK: Supple. CARDIOVASCULAR: Regular rate and rhythm. No murmurs appreciated. LUNGS: Clear to auscultation bilaterally. No wheezes or crackles appreciated. ABDOMEN: Soft, nontender, and nondistended. Bowel sounds are present. EXTREMITIES: No clubbing, cyanosis, or edema. Right leg brace in place. SKIN: Right lower extremity incision healing well. No erythema, drainage, edema, or heat. Nontender to palpation. PSYCHIATRIC: Appropriate mood and affect. LABS: No new. ASSESSMENT AND PLAN: 1. Status post open reduction and internal fixation of right intra-articular distal femur fracture on 01/02/2019. The patient currently admitted to inpatient rehab. Continue current plan. She continues to do well with physical therapy. She was able to ambulate without weightbearing on right lower extremity more yesterday than previously. Mild pain after PT yesterday, but relieved with Tylenol. Area over fracture, nontender to palpation. The patient is to followup with Orthopedics on 02/05/2019. Continue monitoring. 2. Osteopenia with fragility fracture. We will continue vitamin D and calcium with need to transition to bisphosphonate. 3. Hypertension, well controlled. Continue current medications. 4. Diabetes, well controlled. Continue metformin and carb-consistent diet. 5. Long-term tobacco use, status post cessation. Continue Wellbutrin. Doing well. 6. Osteoarthritis. Continue Celebrex b.i.d., p.r.n. Tylenol. 7. Prophylaxis. Continue apixaban for venous thromboembolism prophylaxis. Continue at least to postop day 35. Continue H2 reed for gastrointestinal prophylaxis available upon request. Job ID: [id number] MTDD
[2019-01-25] MEDS: Hydrochlorothiazide 25 MG TAB PO SCH (08:20)
[2019-01-25] MEDS: Losartan 25 MG TAB PO SCH (08:20)
[2019-01-25] MEDS: Calcium Carbonate + Vit D 1 TAB PO SCH (08:20)
[2019-01-25] MEDS: CeleCOXIB 100 MG CAP PO SCH ×2 (08:21→20:46)
[2019-01-25] MEDS: Apixaban 2.5 MG TAB PO SCH ×2 (08:21→20:46)
[2019-01-25] MEDS: Polyethylene Glycol 3350 17 GM Packet PO SCH (08:21)
[2019-01-25] MEDS: metFORMIN 500 MG TAB PO SCH ×2 (08:21→17:28)
[2019-01-25] MEDS: Bupropion 150 MG XL TAB PO SCH (08:23)
[2019-01-26] MEDS: Acetaminophen 500 MG TAB PO SCH ×5 (00:11→21:02)
[2019-01-26] MEDS: Calcium Carbonate + Vit D 1 TAB PO SCH (08:15)
[2019-01-26] MEDS: metFORMIN 500 MG TAB PO SCH ×2 (08:15→17:09)
[2019-01-26] MEDS: Losartan 25 MG TAB PO SCH (08:15)
[2019-01-26] MEDS: Hydrochlorothiazide 25 MG TAB PO SCH (08:15)
[2019-01-26] MEDS: Polyethylene Glycol 3350 17 GM Packet PO SCH (08:16)
[2019-01-26] MEDS: Apixaban 2.5 MG TAB PO SCH ×2 (08:16→21:01)
[2019-01-26] MEDS: CeleCOXIB 100 MG CAP PO SCH ×2 (08:16→21:01)
[2019-01-26] MEDS: Bupropion 150 MG XL TAB PO SCH (08:16)
[2019-01-27] MEDS: Acetaminophen 500 MG TAB PO SCH ×4 (05:12→20:44)
[2019-01-27 05:26] LABS: Hemoglobin 11.4 g/dL (12.0-16.0); Platelet Count 326 thou/uL (130-400)
[2019-01-27] MEDS: Hydrochlorothiazide 25 MG TAB PO SCH (08:24)
[2019-01-27] MEDS: Apixaban 2.5 MG TAB PO SCH ×2 (08:24→20:44)
[2019-01-27] MEDS: Bupropion 150 MG XL TAB PO SCH (08:25)
[2019-01-27] MEDS: metFORMIN 500 MG TAB PO SCH ×2 (08:25→17:27)
[2019-01-27] MEDS: Calcium Carbonate + Vit D 1 TAB PO SCH (08:25)
[2019-01-27] MEDS: Losartan 25 MG TAB PO SCH (08:25)
[2019-01-27] MEDS: CeleCOXIB 100 MG CAP PO SCH ×2 (08:25→20:44)
[2019-01-27] MEDS: Polyethylene Glycol 3350 17 GM Packet PO SCH (08:26)
--- NOTE | 2019-01-27 19:52 | PRG ---
DATE OF SERVICE: 01/27/2019 SUBJECTIVE: The patient is a 63-year-old female, undergoing rehabilitation following right distal femur fracture. The patient states that she has been doing well with learning to hop on one leg as she is nonweightbearing on the right lower extremity. She rated her pain as a 1/10. OBJECTIVE: VITAL SIGNS: Temperature 98.2, pulse 82, respiratory rate 16, O2 saturations 96% on room air, and blood pressure 109/56. GENERAL: The patient is awake, alert, oriented, in no acute distress. CARDIOVASCULAR: Regular rate and rhythm without murmurs, gallops, or rubs. LUNGS: Clear to auscultation bilaterally without wheezing or rhonchi. ABDOMEN: Soft, nontender, nondistended. Bowel sounds are present. EXTREMITIES: There is no clubbing or cyanosis. Hinged knee braces present on the right lower extremity. PSYCHIATRIC: The patient displays appropriate mood and affect. LABORATORY DATA: Hemoglobin and hematocrit 11.4 and 35.8 with platelet count of 326. Creatinine 0.74. ASSESSMENT AND PLAN: 1. Right distal femur fracture, status post open reduction and internal fixation. The patient will continue with PT and OT. Her pain is controlled with current medications and has followup with Ortho next week. 2. Osteopenia: Continue vitamin D and calcium with likely transition to bisphosphonate after 6 weeks. 3. Hypertension: Well controlled. 4. Diabetes: Well controlled with oral medications. 5. Osteoarthritis: Continue NSAIDs and Tylenol. 6. Deep venous thrombosis prophylaxis with Eliquis. Job ID: [id number]
[2019-01-28] MEDS: Acetaminophen 500 MG TAB PO SCH ×4 (05:54→20:45)
[2019-01-28] MEDS: Calcium Carbonate + Vit D 1 TAB PO SCH (08:12)
[2019-01-28] MEDS: Hydrochlorothiazide 25 MG TAB PO SCH (08:12)
[2019-01-28] MEDS: Losartan 25 MG TAB PO SCH (08:12)
[2019-01-28] MEDS: CeleCOXIB 100 MG CAP PO SCH ×2 (08:13→20:45)
[2019-01-28] MEDS: Apixaban 2.5 MG TAB PO SCH ×2 (08:13→20:45)
[2019-01-28] MEDS: Polyethylene Glycol 3350 17 GM Packet PO SCH (08:13)
[2019-01-28] MEDS: Bupropion 150 MG XL TAB PO SCH (08:13)
[2019-01-28] MEDS: metFORMIN 500 MG TAB PO SCH ×2 (08:13→17:46)
[2019-01-29] MEDS: Acetaminophen 500 MG TAB PO SCH ×4 (05:59→20:02)
[2019-01-29] MEDS: Losartan 25 MG TAB PO SCH (07:41)
[2019-01-29] MEDS: Hydrochlorothiazide 25 MG TAB PO SCH (07:41)
[2019-01-29] MEDS: Apixaban 2.5 MG TAB PO SCH ×2 (07:42→20:02)
[2019-01-29] MEDS: Bupropion 150 MG XL TAB PO SCH (07:42)
[2019-01-29] MEDS: Calcium Carbonate + Vit D 1 TAB PO SCH (07:42)
[2019-01-29] MEDS: metFORMIN 500 MG TAB PO SCH ×2 (07:42→17:11)
[2019-01-29] MEDS: CeleCOXIB 100 MG CAP PO SCH ×2 (07:42→20:02)
[2019-01-29] MEDS: Polyethylene Glycol 3350 17 GM Packet PO SCH (07:43)
--- NOTE | 2019-01-29 10:00 | PRG ---
DATE OF SERVICE: 01/28/2019 SUBJECTIVE: The patient is a 63-year-old female, undergoing rehabilitation following right distal femur fracture. The patient was seen while propelling her wheelchair around the nurses station with physical therapy at her side and she states that she has noticed some swelling behind her right knee that is more pronounced when she is lying in bed, but this morning does not appear to be present and she has no pain. OBJECTIVE: VITAL SIGNS: Temperature 96.6, pulse 88, respiration rate 18, O2 saturation 97% on room air, blood pressure 135/53. GENERAL: The patient is awake, alert, oriented and in no acute distress. CARDIOVASCULAR: Regular rate and rhythm without murmurs, gallops, or rubs. LUNGS: Clear to auscultation bilaterally. No wheezes or rhonchi. ABDOMEN: Soft, nontender, nondistended with bowel sounds present. EXTREMITIES: No clubbing or cyanosis. MUSCULOSKELETAL: The patient has a hinged knee brace on the right lower extremity. ASSESSMENT AND PLAN: 1. Right distal femur fracture status post open reduction and internal fixation: The patient is doing well with PT and OT. Her pain is controlled. She is to follow up with Ortho next week to check and see if her weightbearing status can change. 2. Hypertension, well controlled. 3. Diabetes, well controlled with oral hypoglycemics. 4. Osteopenia: Continue calcium and vitamin D. We will start a bisphosphonate when she is approximately 6 weeks post fracture. 5. Deep venous thrombosis prophylaxis with Eliquis. 6. Gastrointestinal prophylaxis with H2 reed. [facility] [id number] [facility]
--- NOTE | 2019-01-29 18:14 | PRG ---
DATE OF SERVICE: 01/29/2019 SUBJECTIVE: The patient is a 63-year-old female undergoing rehabilitation following right distal femur fracture. The patient states that she worked with therapy 4 times a day, doing twice with PT and twice with OT. She thinks she is going to be very tired tonight, but overall is doing well. She is much better at maneuvering her wheelchair. OBJECTIVE: VITAL SIGNS: Temp 97.9, pulse 71, respiration rate 18, O2 saturation 97% on room air, blood pressure 116/49. GENERAL: The patient is awake, alert, oriented, and in no acute distress. CARDIOVASCULAR: Regular rate and rhythm without murmurs, gallops, or rubs. LUNGS: Clear to auscultation bilaterally without wheezing or rhonchi. ABDOMEN: Soft, nontender, and nondistended with bowel sounds present. EXTREMITIES: There is no clubbing or cyanosis. SKIN: The patient has a couple of Steri-Strips still left along the right lower extremity incision. ASSESSMENT AND PLAN: 1. Right distal femur fracture, status post open reduction and internal fixation: The patient remains toe-touch weightbearing on the right leg. She has followup with Ortho in 1 week. She will continue PT and OT. 2. Osteopenia: Continue calcium and vitamin D. 3. Hypertension, well controlled. 4. Diabetes, controlled with oral medications and diet. 5. Deep vein thrombosis prophylaxis with Eliquis. 6. Gastrointestinal prophylaxis with an H2 reed. Job ID: [id number]
[2019-01-30] MEDS: Acetaminophen 500 MG TAB PO SCH ×3 (07:28→17:25)
[2019-01-30] MEDS: Apixaban 2.5 MG TAB PO SCH ×2 (08:10→20:47)
[2019-01-30] MEDS: Hydrochlorothiazide 25 MG TAB PO SCH (08:10)
[2019-01-30] MEDS: Losartan 25 MG TAB PO SCH (08:10)
[2019-01-30] MEDS: metFORMIN 500 MG TAB PO SCH ×2 (08:10→17:24)
[2019-01-30] MEDS: Calcium Carbonate + Vit D 1 TAB PO SCH (08:10)
[2019-01-30] MEDS: Bupropion 150 MG XL TAB PO SCH (08:10)
[2019-01-30] MEDS: CeleCOXIB 100 MG CAP PO SCH ×2 (08:10→20:47)
[2019-01-30] MEDS: Polyethylene Glycol 3350 17 GM Packet PO SCH (08:11)
[2019-01-30] MEDS: traMADol HCl 50 MG TAB PO PRN (20:47)
[2019-01-31] MEDS: Acetaminophen 500 MG TAB PO SCH ×4 (00:20→17:30)
[2019-01-31] MEDS: Losartan 25 MG TAB PO SCH (08:31)
[2019-01-31] MEDS: Bupropion 150 MG XL TAB PO SCH (08:31)
[2019-01-31] MEDS: Calcium Carbonate + Vit D 1 TAB PO SCH (08:32)
[2019-01-31] MEDS: CeleCOXIB 100 MG CAP PO SCH ×2 (08:32→20:20)
[2019-01-31] MEDS: Polyethylene Glycol 3350 17 GM Packet PO SCH (08:32)
[2019-01-31] MEDS: Apixaban 2.5 MG TAB PO SCH ×2 (08:32→20:20)
[2019-01-31] MEDS: metFORMIN 500 MG TAB PO SCH ×2 (08:32→17:30)
[2019-01-31] MEDS: Hydrochlorothiazide 25 MG TAB PO SCH (08:32)
[2019-02-01] MEDS: Acetaminophen 500 MG TAB PO SCH ×4 (00:43→16:42)
[2019-02-01] MEDS: Bupropion 150 MG XL TAB PO SCH (08:35)
[2019-02-01] MEDS: metFORMIN 500 MG TAB PO SCH ×2 (08:35→16:42)
[2019-02-01] MEDS: Apixaban 2.5 MG TAB PO SCH ×2 (08:35→20:34)
[2019-02-01] MEDS: Calcium Carbonate + Vit D 1 TAB PO SCH (08:35)
[2019-02-01] MEDS: Losartan 25 MG TAB PO SCH (08:36)
[2019-02-01] MEDS: Hydrochlorothiazide 25 MG TAB PO SCH (08:36)
[2019-02-01] MEDS: Polyethylene Glycol 3350 17 GM Packet PO SCH (08:36)
[2019-02-01] MEDS: CeleCOXIB 100 MG CAP PO SCH ×2 (08:36→20:34)
--- NOTE | 2019-02-01 20:13 | PRG ---
DATE OF SERVICE: 01/30/2019 SUBJECTIVE: The patient is a 63-year-old female, undergoing rehabilitation status following a right distal femur fracture. The patient states that she was able to hop approximately 30 feet with her walker with Physical Therapy by her side. She is feeling pretty tired after working with therapy multiple times. OBJECTIVE: VITAL SIGNS: Temperature 97.8, pulse 79, respiration rate 18, O2 saturation 97% on room air, blood pressure 117/58. GENERAL: The patient is awake, alert, oriented, and in no acute distress. CARDIOVASCULAR: Regular rate and rhythm without murmurs, gallops, or rubs. LUNGS: Clear to auscultation bilaterally without wheezing or rhonchi. ABDOMEN: Soft, nontender, nondistended, with bowel sounds present. EXTREMITIES: There is no clubbing or cyanosis. ASSESSMENT AND PLAN: 1. Right distal femur fracture status post open reduction and internal fixation: Continue PT and OT. The patient is to follow up with Orthopedics next week to see if her toe-touch weightbearing status can be progressed. The patient will remain in a hinged knee brace when she is up moving about, that can take it off when she is in bed. 2. Hypertension: Well controlled. 3. Diabetes: Controlled on oral hypoglycemics and with diet. 4. Osteopenia: Continue calcium and vitamin D. 5. Deep venous thrombosis prophylaxis with Eliquis. 6. Gastrointestinal prophylaxis with an H2 reed. Job ID: [id number]
--- NOTE | 2019-02-01 20:19 | PRG ---
DATE OF SERVICE: 02/01/2019 SUBJECTIVE: The patient is a 63-year-old female, undergoing rehabilitation following a right distal femur fracture. The patient has no concerns this morning. OBJECTIVE: VITAL SIGNS: Temperature 98.7, pulse 64, respiration rate 18, O2 saturation 98% on room air, blood pressure 146/60. GENERAL: The patient is awake, alert, oriented, in no acute distress. CARDIOVASCULAR: Regular rate and rhythm without murmurs, gallops, or rubs. LUNGS: Clear to auscultation bilaterally without wheezing or rhonchi. EXTREMITIES: There is no clubbing or cyanosis. Skin: The patient has Steri-Strips in place along the incision on the right lower extremity. She has some dry skin surrounding the incision. PSYCHIATRIC: The patient displays an appropriate mood and affect. ASSESSMENT AND PLAN: 1. Right distal femur fracture, status post open reduction and internal fixation: We will continue PT and OT. She is getting a little bit of a break over the weekend. Continue pain control and toe-touch weightbearing. The patient is to follow up with Orthopedics in the coming week. 2. Hypertension: The patient's blood pressure is elevated today. However, normally it is well controlled. We will continue to monitor. 3. Diabetes: This has been well controlled with current medications. 4. Osteopenia: Continue calcium and vitamin D. 5. We will repeat CBC and BMP tomorrow morning. 6. Deep venous thrombosis prophylaxis with Eliquis. Job ID: [id number]
[2019-02-02] MEDS: Acetaminophen 500 MG TAB PO SCH ×4 (00:27→17:34)
[2019-02-02 05:37] LABS: #Basophils 0.1 thou/uL (0.0-0.2); #Eosinphils 0.3 thou/uL (0.0-0.7); #Monocytes 0.9 thou/uL (0.11-0.59); #Neutrophils 4.5 thou/uL (1.40-6.50); %Basophils 1.4 % (0.0-1.0); %Eosinophils 3.8 % (0.0-10.0); %Lymphocytes 34.1 % (21.0-51.0); %Monocytes 10.5 % (0.0-10.0); %Neutrophils 50.3 % (42.0-75.0); Hemoglobin 11.8 g/dL (12.0-16.0); Mean Corpuscular HGB CONC 31.1 g/dL (32.0-36.0); Mean Corpuscular Volume 93.1 fL (78.0-98.0); Mean Platelet Volume 8.9 fL (7.4-10.4); Platelet Count 318 thou/uL (130-400); RBC Distribution Width 12.7 % (11.5-14.5); Red Blood Cell (RBC) Count 4.07 mill/uL (4.20-5.40); White Blood Cell (WBC) Count 8.9 thou/uL (4.8-10.8)
[2019-02-02 05:47] LABS: Anion Gap 14 mmol/L (10-20); BUN (Urea Nitrogen) 25 mg/dL (9.8-20.1); Calc. Creatinine Clearance 144 mL/min (70-130); Calcium 9.9 mg/dL (7.8-10.44); Carbon Dioxide 28 mmol/L (23-31); Chloride 103 mmol/L (98-107); Estimated GFR-MDRD 80; Glucose 95 mg/dL (80-115); Potassium 4.4 mmol/L (3.5-5.1); Sodium 141 mmol/L (136-145)
[2019-02-02] MEDS: Hydrochlorothiazide 25 MG TAB PO SCH (08:14)
[2019-02-02] MEDS: Losartan 25 MG TAB PO SCH (08:14)
[2019-02-02] MEDS: Calcium Carbonate + Vit D 1 TAB PO SCH (08:16)
[2019-02-02] MEDS: Apixaban 2.5 MG TAB PO SCH ×2 (08:16→20:09)
[2019-02-02] MEDS: metFORMIN 500 MG TAB PO SCH ×2 (08:16→17:34)
[2019-02-02] MEDS: CeleCOXIB 100 MG CAP PO SCH ×2 (08:17→20:09)
[2019-02-02] MEDS: Bupropion 150 MG XL TAB PO SCH (08:17)
[2019-02-02] MEDS: Polyethylene Glycol 3350 17 GM Packet PO SCH (08:18)
[2019-02-03] MEDS: Acetaminophen 500 MG TAB PO SCH ×4 (01:22→17:16)
[2019-02-03 05:48] LABS: Hemoglobin 11.6 g/dL (12.0-16.0); Platelet Count 290 thou/uL (130-400)
[2019-02-03 06:00] LABS: Calc. Creatinine Clearance 160 mL/min (70-130); Estimated GFR-MDRD Greater than 90
[2019-02-03] MEDS: Calcium Carbonate + Vit D 1 TAB PO SCH (08:10)
[2019-02-03] MEDS: Losartan 25 MG TAB PO SCH (08:10)
[2019-02-03] MEDS: Hydrochlorothiazide 25 MG TAB PO SCH (08:10)
[2019-02-03] MEDS: CeleCOXIB 100 MG CAP PO SCH ×2 (08:11→20:12)
[2019-02-03] MEDS: metFORMIN 500 MG TAB PO SCH ×2 (08:11→17:16)
[2019-02-03] MEDS: Polyethylene Glycol 3350 17 GM Packet PO SCH (08:11)
[2019-02-03] MEDS: Bupropion 150 MG XL TAB PO SCH (08:11)
[2019-02-03] MEDS: Apixaban 2.5 MG TAB PO SCH ×2 (08:11→20:12)
--- NOTE | 2019-02-03 13:57 | PRG ---
DATE OF SERVICE: 02/03/2019 SUBJECTIVE: The patient is a 63-year-old female, undergoing rehabilitation following right distal femur fracture. The patient has felt well over the weekend and is heading down to the gym to work with Therapy. OBJECTIVE: VITAL SIGNS: Temperature 98, pulse 73, respiration rate 20, O2 saturation 96% on room air, and blood pressure 114/54. GENERAL: The patient is awake, alert, oriented, in no acute distress. CARDIOVASCULAR: Regular rate and rhythm without murmurs, gallops, or rubs. LUNGS: Clear to auscultation bilaterally without wheezing or rhonchi. EXTREMITIES: There is no clubbing, cyanosis, or edema. SKIN: The patient's incision is well healed and all Steri-Strips have now fallen off. PSYCHIATRIC: The patient displays appropriate mood and affect. LABORATORY DATA: 1. CBC: WBCs 8.9, hemoglobin 11.8, hematocrit 37.9, platelet count 318. 2. BMP: Sodium 141, potassium 4.4, chloride 103, bicarb 28, BUN is 25, creatinine 0.74, glucose 95, calcium 9.9. ASSESSMENT AND PLAN: 1. Right distal femur fracture, status post ORIF: The patient is continuing PT and OT. She is able to transfer, but her house is not set up for her to be able to move around. She has a followup with Ortho in two days. We are hoping that her weightbearing status will be advanced. 2. Diabetes: The patient's blood sugars remain well controlled. 3. Hypertension: Continue current medications as blood pressures were stable. 4. Osteopenia: Continue on calcium and vitamin D. 5. DVT prophylaxis with Eliquis. 6. GI prophylaxis with H2 reed. Job ID: [id number]
[2019-02-04] MEDS: Acetaminophen 500 MG TAB PO SCH ×4 (00:46→17:33)
[2019-02-04] MEDS: Losartan 25 MG TAB PO SCH (08:10)
[2019-02-04] MEDS: Apixaban 2.5 MG TAB PO SCH ×2 (08:10→20:11)
[2019-02-04] MEDS: metFORMIN 500 MG TAB PO SCH ×2 (08:10→17:26)
[2019-02-04] MEDS: Bupropion 150 MG XL TAB PO SCH (08:10)
[2019-02-04] MEDS: Calcium Carbonate + Vit D 1 TAB PO SCH (08:10)
[2019-02-04] MEDS: Hydrochlorothiazide 25 MG TAB PO SCH (08:10)
[2019-02-04] MEDS: CeleCOXIB 100 MG CAP PO SCH ×2 (08:11→20:11)
[2019-02-04] MEDS: Polyethylene Glycol 3350 17 GM Packet PO SCH (08:11)
--- NOTE | 2019-02-04 10:31 | PRG ---
DATE OF SERVICE: 02/04/2019 SUBJECTIVE: The patient is a 63-year-old female undergoing rehabilitation following right distal femur fracture. The patient has already begun working with Physical Therapy this morning and has an appointment with Ortho tomorrow. OBJECTIVE: VITAL SIGNS: Temperature 98.1, pulse 72, respiration rate 16, O2 saturation 96% on room air, and blood pressure 118/56. GENERAL: The patient is awake, alert, and oriented, in no acute distress. CARDIOVASCULAR: Regular rate and rhythm without murmurs, gallops, or rubs. LUNGS: Clear to auscultation bilaterally without wheezing or rhonchi. PSYCHIATRIC: The patient is placed in appropriate mood and affect. EXTREMITIES: There is no clubbing, cyanosis, or edema. LABORATORY DATA: 1. Hemoglobin 11.6, hematocrit 38.0, platelet count 290. 2. Creatinine of 0.65. ASSESSMENT AND PLAN: 1. Right distal femur fracture, status post open reduction and internal fixation: Continue PT and OT. The patient will have followup with Orthopedics tomorrow. We are hopeful that her weightbearing status can be advanced from toe-touch. 2. Osteopenia: Continue calcium and vitamin D. 3. Hypertension: Well controlled. 4. Diabetes: Well controlled with diet, medications. 5. Osteoarthritis: Continue therapy and pain control as needed. 6. Deep venous thrombosis prophylaxis with Eliquis. 7. Gastrointestinal prophylaxis with H2 reed. Job ID: [id number]
[2019-02-05] MEDS: Acetaminophen 500 MG TAB PO SCH ×5 (00:06→20:19)
[2019-02-05] MEDS: Calcium Carbonate + Vit D 1 TAB PO SCH (08:25)
[2019-02-05] MEDS: Losartan 25 MG TAB PO SCH (08:25)
[2019-02-05] MEDS: metFORMIN 500 MG TAB PO SCH ×2 (08:26→17:35)
[2019-02-05] MEDS: CeleCOXIB 100 MG CAP PO SCH ×2 (08:26→20:19)
[2019-02-05] MEDS: Apixaban 2.5 MG TAB PO SCH ×2 (08:26→20:19)
[2019-02-05] MEDS: Hydrochlorothiazide 25 MG TAB PO SCH (08:26)
[2019-02-05] MEDS: Bupropion 150 MG XL TAB PO SCH (08:27)
[2019-02-05] MEDS: Polyethylene Glycol 3350 17 GM Packet PO SCH (08:28)
[2019-02-06] MEDS: Hydrochlorothiazide 25 MG TAB PO SCH (07:53)
[2019-02-06] MEDS: Losartan 25 MG TAB PO SCH (07:53)
[2019-02-06] MEDS: metFORMIN 500 MG TAB PO SCH ×2 (07:53→17:04)
[2019-02-06] MEDS: Calcium Carbonate + Vit D 1 TAB PO SCH (07:53)
[2019-02-06] MEDS: Acetaminophen 500 MG TAB PO SCH ×4 (07:54→20:11)
[2019-02-06] MEDS: Bupropion 150 MG XL TAB PO SCH (09:06)
[2019-02-06] MEDS: CeleCOXIB 100 MG CAP PO SCH ×2 (09:06→20:11)
[2019-02-06] MEDS: Apixaban 2.5 MG TAB PO SCH ×2 (09:06→20:11)
[2019-02-06] MEDS: Polyethylene Glycol 3350 17 GM Packet PO SCH (09:07)
--- NOTE | 2019-02-06 16:44 | PRG ---
DATE OF SERVICE: 02/06/2019 SUBJECTIVE: The patient is a 63-year-old female, undergoing rehabilitation for a right distal femur fracture. The patient saw her orthopedic surgeon yesterday and the bone is healing and she has been advanced to 50% weightbearing on the right lower extremity. The patient has already practiced walking this morning with physical therapy. OBJECTIVE: VITAL SIGNS: Temp 96.3, pulse 73, respiration rate 18, O2 saturation 96% on room air, blood pressure 128/61. GENERAL: The patient is awake, alert, oriented, in no acute distress. CARDIOVASCULAR: Regular rate and rhythm without murmurs, gallops, or rubs. LUNGS: Clear to auscultation bilaterally without wheezing or rhonchi. ABDOMEN: Soft, nontender, nondistended. Bowel sounds present. EXTREMITIES: There is no clubbing or cyanosis, but there is some minimal edema on the right lower extremity. PSYCHIATRIC: The patient displays an appropriate mood and affect. ASSESSMENT AND PLAN: 1. Right distal femur fracture: The patient has been upgraded to 50% weightbearing on the right lower extremity. She will continue PT and OT. In discussion with therapy, we think that she will likely be able to discharge home in the next week. She received some practice with ambulation. 2. Hypertension: Well controlled. 3. Diabetes: Controlled with oral hypoglycemics and diet. 4. Osteopenia: Continue calcium and vitamin D. 5. DVT prophylaxis with Eliquis. 6. GI prophylaxis with an H2 reed. Job ID: [id number]
[2019-02-07] MEDS: Calcium Carbonate + Vit D 1 TAB PO SCH (08:09)
[2019-02-07] MEDS: Polyethylene Glycol 3350 17 GM Packet PO SCH (08:09)
[2019-02-07] MEDS: Acetaminophen 500 MG TAB PO SCH ×5 (08:09→20:52)
[2019-02-07] MEDS: Losartan 25 MG TAB PO SCH (08:09)
[2019-02-07] MEDS: CeleCOXIB 100 MG CAP PO SCH ×2 (08:09→20:53)
[2019-02-07] MEDS: metFORMIN 500 MG TAB PO SCH ×2 (08:10→16:16)
[2019-02-07] MEDS: Apixaban 2.5 MG TAB PO SCH ×2 (08:10→20:52)
[2019-02-07] MEDS: Hydrochlorothiazide 25 MG TAB PO SCH (08:10)
[2019-02-07] MEDS: Bupropion 150 MG XL TAB PO SCH (08:10)
--- NOTE | 2019-02-07 12:26 | PRG ---
DATE OF SERVICE: 02/07/2019 SUBJECTIVE: The patient is a 63-year-old female, undergoing rehabilitation following a right distal femur fracture. The patient is now with 50% weightbearing on the right lower extremity and is looking forward to therapy this morning. OBJECTIVE: VITAL SIGNS: Temperature 96.0, pulse 93, respiration rate 20, O2 saturation 97% on room air, blood pressure 115/54. GENERAL: The patient is awake, alert, oriented, in no acute distress. CARDIOVASCULAR: Regular rate and rhythm without murmurs, gallops, or rubs. LUNGS: Clear to auscultation bilaterally without wheezing or rhonchi. ABDOMEN: Soft, nontender, nondistended. Bowel sounds are present. EXTREMITIES: No clubbing or cyanosis. The patient's incision is well healed with some dry skin surrounding it. PSYCHIATRIC: The patient displays an appropriate mood and affect. ASSESSMENT AND PLAN: 1. Right distal femur fracture, status post open reduction and internal fixation : The patient will continue with 50% weightbearing on the right lower extremity. We anticipate the patient will be able to go home in the middle of next week. Continue PT and OT as well as pain control. 2. Hypertension, well controlled. 3. Diabetes, controlled with oral medications and diet. 4. Osteopenia. Continue calcium and vitamin D. 5. Deep venous thrombosis prophylaxis with Eliquis. 6. Gastrointestinal prophylaxis with H2 reed. Job ID: [id number] MTDD
[2019-02-07 12:50] VITALS: BMI 42.3
[2019-02-08] MEDS: Acetaminophen 500 MG TAB PO SCH ×4 (05:59→20:11)
[2019-02-08] MEDS: Calcium Carbonate + Vit D 1 TAB PO SCH (08:16)
[2019-02-08] MEDS: Hydrochlorothiazide 25 MG TAB PO SCH (08:16)
[2019-02-08] MEDS: Losartan 25 MG TAB PO SCH (08:16)
[2019-02-08] MEDS: metFORMIN 500 MG TAB PO SCH ×2 (08:16→17:46)
[2019-02-08] MEDS: Polyethylene Glycol 3350 17 GM Packet PO SCH (08:17)
[2019-02-08] MEDS: Apixaban 2.5 MG TAB PO SCH ×2 (08:17→20:12)
[2019-02-08] MEDS: Bupropion 150 MG XL TAB PO SCH (08:17)
[2019-02-08] MEDS: CeleCOXIB 100 MG CAP PO SCH ×2 (08:17→20:12)
[2019-02-09] MEDS: Acetaminophen 500 MG TAB PO SCH ×4 (04:11→19:56)
[2019-02-09] MEDS: Losartan 25 MG TAB PO SCH (08:13)
[2019-02-09] MEDS: Hydrochlorothiazide 25 MG TAB PO SCH (08:13)
[2019-02-09] MEDS: Bupropion 150 MG XL TAB PO SCH (08:14)
[2019-02-09] MEDS: Apixaban 2.5 MG TAB PO SCH ×2 (08:14→19:56)
[2019-02-09] MEDS: Calcium Carbonate + Vit D 1 TAB PO SCH (08:14)
[2019-02-09] MEDS: Polyethylene Glycol 3350 17 GM Packet PO SCH (08:14)
[2019-02-09] MEDS: CeleCOXIB 100 MG CAP PO SCH ×2 (08:14→19:56)
[2019-02-09] MEDS: metFORMIN 500 MG TAB PO SCH ×2 (08:14→17:51)
[2019-02-10] MEDS: Acetaminophen 500 MG TAB PO SCH ×4 (02:30→20:14)
[2019-02-10 05:24] LABS: Hemoglobin 11.7 g/dL (12.0-16.0); Platelet Count 250 thou/uL (130-400)
[2019-02-10] MEDS: CeleCOXIB 100 MG CAP PO SCH ×2 (08:22→20:14)
[2019-02-10] MEDS: Losartan 25 MG TAB PO SCH (08:22)
[2019-02-10] MEDS: metFORMIN 500 MG TAB PO SCH ×2 (08:22→16:53)
[2019-02-10] MEDS: Hydrochlorothiazide 25 MG TAB PO SCH (08:22)
[2019-02-10] MEDS: Bupropion 150 MG XL TAB PO SCH (08:22)
[2019-02-10] MEDS: Apixaban 2.5 MG TAB PO SCH ×2 (08:22→20:14)
[2019-02-10] MEDS: Calcium Carbonate + Vit D 1 TAB PO SCH (08:23)
[2019-02-10] MEDS: Polyethylene Glycol 3350 17 GM Packet PO SCH (08:26)
--- NOTE | 2019-02-10 13:13 | PRG ---
DATE OF SERVICE: 02/10/2019 SUBJECTIVE: The patient is a 63-year-old female, undergoing rehab following a right distal femur fracture. The patient was seen in the therapy gym and was able to walk around the nurses' station down to the gym. Her pain is well controlled. OBJECTIVE: VITAL SIGNS: Temperature 97.0, pulse 69, respirations 18, O2 saturation 99% on room air, blood pressure 119/55. GENERAL: The patient is awake, alert, oriented, in no acute distress. CARDIOVASCULAR: Regular rate and rhythm without murmurs, gallops, or rubs. LUNGS: Clear to auscultation bilaterally without wheezing or rhonchi. ABDOMEN: Soft, nontender, nondistended with bowel sounds present. EXTREMITIES: There is no clubbing or cyanosis. The patient's incision is well healed. PSYCHIATRIC: The patient displays appropriate mood and affect. LABORATORY DATA: Hemoglobin 11.7, hematocrit 37.7, platelet count 250. Creatinine 0.78. ASSESSMENT AND PLAN: 1. Right distal femur fracture, status post open reduction and internal fixation: The patient is doing very well with 50% weightbearing on the right lower extremity. The patient is continuing with PT. She has been discharged from occupational therapy. The patient plans to discharge home in 2 days. 2. Hypertension: Well controlled. 3. Diabetes: Well controlled with current management. 4. Osteopenia: Continue calcium and vitamin D. 5. Deep venous thrombosis prophylaxis with Eliquis, which will be stopped when the patient is discharged. 6. Gastrointestinal prophylaxis with H2 reed. Job ID: [id number]
[2019-02-11] MEDS: Acetaminophen 500 MG TAB PO SCH ×4 (05:55→20:19)
[2019-02-11] MEDS: Bupropion 150 MG XL TAB PO SCH (08:11)
[2019-02-11] MEDS: CeleCOXIB 100 MG CAP PO SCH ×2 (08:11→20:18)
[2019-02-11] MEDS: Losartan 25 MG TAB PO SCH (08:11)
[2019-02-11] MEDS: Calcium Carbonate + Vit D 1 TAB PO SCH (08:11)
[2019-02-11] MEDS: metFORMIN 500 MG TAB PO SCH ×2 (08:11→17:30)
[2019-02-11] MEDS: Apixaban 2.5 MG TAB PO SCH ×2 (08:11→20:19)
[2019-02-11] MEDS: Hydrochlorothiazide 25 MG TAB PO SCH (08:11)
[2019-02-11] MEDS: Polyethylene Glycol 3350 17 GM Packet PO SCH (08:12)
--- NOTE | 2019-02-11 17:30 | PRG ---
DATE OF SERVICE: 02/11/2019 SUBJECTIVE: The patient is a 63-year-old female undergoing rehab following a right distal femur fracture. The patient is seen walking down the hallway with her walker. The patient is looking forward to being discharged tomorrow. OBJECTIVE: VITAL SIGNS: Temperature 97.3, pulse 75, respiration rate 16, O2 saturation 99% on room air, and blood pressure 109/59. GENERAL: The patient is awake, alert, and oriented, in no acute distress. CARDIOVASCULAR: Regular rate, regular rhythm without murmurs, gallops, or rubs. LUNGS: Clear to auscultation bilaterally without wheezing or rhonchi. ABDOMEN: Soft, nontender, and nondistended. Bowel sounds present. EXTREMITIES: There is no clubbing, cyanosis, or edema. PSYCHIATRIC: The patient displays appropriate mood and affect. ASSESSMENT AND PLAN: 1. Right distal femur fracture status post open reduction and internal fixation: The patient will be discharging home tomorrow. She is planning on doing outpatient physical therapy possibly at the [facility], but this is being set up through the therapy staff. 2. Hypertension: Continue current medications and is well controlled. 3. Diabetes: Well controlled with oral medication and diet. 4. Osteopenia. We will continue vitamin D and calcium supplementation. Job ID: [id number]
[2019-02-12] MEDS: Acetaminophen 500 MG TAB PO SCH ×2 (04:12→08:04)
[2019-02-12] MEDS: Losartan 25 MG TAB PO SCH (08:03)
[2019-02-12] MEDS: Hydrochlorothiazide 25 MG TAB PO SCH (08:03)
[2019-02-12] MEDS: Calcium Carbonate + Vit D 1 TAB PO SCH (08:04)
[2019-02-12] MEDS: Bupropion 150 MG XL TAB PO SCH (08:04)
[2019-02-12] MEDS: metFORMIN 500 MG TAB PO SCH (08:04)
[2019-02-12] MEDS: Apixaban 2.5 MG TAB PO SCH (08:04)
[2019-02-12] MEDS: Polyethylene Glycol 3350 17 GM Packet PO SCH (08:05)
[2019-02-12] MEDS: CeleCOXIB 100 MG CAP PO SCH (08:05)
[2019-02-12 08:35] VITALS: BP 120/56; TEMP 97.6
--- NOTE | 2019-02-13 07:10 | DIS ---
DATE OF ADMISSION: 01/09/2019 DATE OF DISCHARGE: 02/12/2019 DISCHARGE DIAGNOSES: 1. Right distal femur fracture, status post open reduction and internal fixation. 2. Diabetes. 3. Hypertension. 4. Osteopenia. 5. Hyperlipidemia. HOSPITAL COURSE: The patient is a 63-year-old female, who suffered a fall and subsequent right distal femur fracture and underwent ORIF at [facility] in [place]. The patient was transferred to [place] for rehabilitation. The patient was initially toe-touch weightbearing for several weeks and then was able to follow up with Orthopedics who advanced her to 50% weightbearing on the right lower extremity last week. The patient has been able to ambulate with a walker and is now safe to discharge home. The patient will continue on her current medications. Calcium and vitamin D were added due to the recent fracture. The patient will resume care with her PCP and has follow up with Orthopedics in the coming weeks. DISCHARGE MEDICATIONS: 1. Acetaminophen 1000 mg p.o. q.6 hours p.r.n. 2. Bupropion XL . 3. Calcium with vitamin D one tab p.o. daily. 4. Celebrex 200 mg p.o. b.i.d. 5. [id number] mg p.o. b.i.d. 6. Losartan/hydrochlorothiazide 100/25 mg one p.o. daily. 7. Pravastatin 40 mg p.o. daily. DISPOSITION: 1. Discharged home in stable condition. 2. Outpatient PT orders were signed for her to continue physical therapy. LIMITATIONS: Patient is to continue 50% weightbearing on the right lower extremity. DIET: Diabetic. FOLLOWUP: The patient will follow up with her PCP within 1 to 2 weeks. Total discharge time 33 minutes with med rec, physical therapy referral, etc. Job ID: [id number] [facility]IT[facility]en[facility]
--- NOTE | 2019-02-13 09:42 | PQF ---
[employer] JessicaGeljenny Mitchell NILDA Gillis MD [id number] CLINICAL DOCUMENTATION CLARIFICATION FORM: POST DISCHARGE Addendum to original discharge summary date: ____ Late entry note date: __ DATE: 02/13/2019 ATTN: NILDA MOON MD Please exercise your independent, professional judgment in responding to the clarification form. Clinical indicators are provided on the bottom of this form for your review Please check appropriate box(s): [ x] Obesity [ ] Abnormal weight gain [ ] Unable to determine In addition, please specify: Present on Admission (POA): [ x] Yes [ ] No [ ] Unable to determine For continuity of documentation, please document condition throughout progress notes and discharge summary. Thank You. CLINICAL INDICATORS - SIGNS / SYMPTOMS/ LABS are present in the medical record: -BMI:42.3 - FNS assessment- 02/07 - Height: 1.63m-FNS assessment- 02/07 -Admit weight:113.942kg-FNS assessment- 02/07 RISK FACTORS - Right distal femur fracture-DS, 02/12, NILDA MOON MD - S/p ORIF-DS, 02/12, NILDA MOON MD TREATMENT -Calcium with vitamin D.PO- Ds, 02/12, NILDA MOON MD (This form is maintained as a part of the permanent medical record) 2014 [employer] All Rights Reserved Annika Bryant [not provided] [not provided] TAMID
== END 2019-02-12 12:50 | disposition home or self-care (01) | DRG 560 ==
LOC: NAV ACUTE 17:35
PROVIDERS: ADMIT Family Medicine; ATTEND Family Medicine
DX: S72.8X1D Other fracture of right femur, subsequent encounter for closed fracture with routine healing (principal); Z68.41 Body mass index [BMI] 40.0-44.9, adult; Z47.89 Encounter for other orthopedic aftercare; E11.9 Type 2 diabetes mellitus without complications; I10 Essential (primary) hypertension; M85.80 Other specified disorders of bone density and structure, unspecified site; M19.90 Unspecified osteoarthritis, unspecified site; D72.829 Elevated white blood cell count, unspecified; W18.30XD Fall on same level, unspecified, subsequent encounter; Z88.1 Allergy status to other antibiotic agents; Z88.0 Allergy status to penicillin; Z88.2 Allergy status to sulfonamides; Z88.8 Allergy status to other drugs, medicaments and biological substances; Z90.49 Acquired absence of other specified parts of digestive tract; E66.9 Obesity, unspecified
CPT/HCPCS: 36415; 36416; 80048; 80053; 82565; 83036; 85014; 85018; 85025; 85049; J1650